=== PATIENT | female | born 1950 | race Caucasian/White ===

== ENCOUNTER 2016-08-25 07:50 | Emergency (ER) | payer OTHER, MEDICAID ==
[~2016-08-25] VITALS: Ht 157.5 cm; Wt 80.0 kg
[~2016-08-25 07:50] MED LIST: ACET325T40 PO; ATOR40TA68 PO; COU5 PO; DILT120C77 PO; DOCU-159 PO; FAMO-95 PO; FAMO20TA18 PO; FURO20TA3 PO; IBUP-1542 PO; MAGN400T28 PO; OXYC5CAP17 PO
[2016-08-25 07:52] VITALS: Ht 157.5 cm; Wt 80.0 kg
--- NOTE | 2016-08-25 08:36 | RADRPT ---
PROCEDURE: XR Chest. CLINICAL INDICATION: Chest pain TECHNIQUE: Single frontal view of the chest was obtained COMPARISON: 03/18/2015 FINDINGS: The heart is enlarged. The thoracic aorta is calcified. The patient is status post sternotomy and heart valve replacement. The lungs are clear. There is no pleural effusion or pneumothorax. RPTAT: AA IMPRESSION: Mild cardiomegaly. Calcified aorta consistent with atherosclerotic disease. .Zbigniew Bergeron MD, MD Date Time Electronically viewed and signed by .Zbigniew Bergeron MD, on 08/25/2016 08:36 .S/
[2016-08-25 09:02] LABS: ADD SCAN DIFF NO
[2016-08-25 09:08] LABS: BASOPHILS % 0.2 % (0.0-2.0); EOSINOPHILS # 0.1 10^3/ul (0.0-0.5); EOSINOPHILS % 1.7 % (0.0-7.0); HEMOGLOBIN 10.7 g/dl (12.0-16.0); LYMPHOCYTES # 0.9 10^3/ul (0.8-2.9); LYMPHOCYTES % 22.9 % (15.0-51.0); MEAN CORPUSCULAR HEMOGLOBIN 29.7 pg (29.0-33.0); MEAN CORPUSCULAR HGB CONC 33.4 g/dl (32.0-37.0); MEAN CORPUSCULAR VOLUME 88.9 fl (82.0-101.0); MEAN PLATELET VOLUME 9.7 fl (7.4-10.4); MONOCYTE # 0.4 10^3/ul (0.3-0.9); MONOCYTES % 9.9 % (0.0-11.0); NEUTROPHIL # 2.6 10^3/ul (1.6-7.5); NEUTROPHILS % 64.8 % (39.0-77.0); PLATELET COUNT 115 10^3/UL (140-415); RED CELL DISTRIBUTION WIDTH 12.6 % (11.5-14.5); WHITE BLOOD COUNT 4.1 10^3/ul (4.8-10.8)
[2016-08-25] MEDS ORDERED: BENA5TAB2 PO (09:15)
[2016-08-25] MEDS ORDERED: WARF7.5T PO (09:15)
[2016-08-25 09:17] LABS: INR 1.66; PROTIME 19.7 Sec (12.2-14.2); PT RATIO 1.5
[2016-08-25 09:18] LABS: PARTIAL THROMBOPLASTIN TIME 36.4 Sec (25.0-35.0)
[2016-08-25 09:20] LABS: ALANINE AMINOTRANSFERASE 37 IU/L (13-69); ALBUMIN 3.6 g/dl (3.3-4.9); ALKALINE PHOSPHATASE 67 IU/L (42-121); ANION GAP 8 (8-16); ASPARTATE AMINO TRANSFERASE 23 IU/L (15-46); BILIRUBIN,INDIRECT 0.4 mg/dl (0-1.1); BILIRUBIN,TOTAL 0.4 mg/dl (0.2-1.3); BLOOD UREA NITROGEN 9 mg/dl (7-20); CALCIUM 8.8 mg/dl (8.4-10.2); CARBON DIOXIDE 28 mmol/L (21-31); CHLORIDE 108 mmol/L (97-110); CREATININE 0.59 mg/dl (0.44-1.00); GLUCOSE 122 mg/dl (70-220); POTASSIUM 3.8 mmol/L (3.5-5.1); SODIUM 140 mmol/L (135-144); TOTAL PROTEIN 6.6 g/dl (6.1-8.1)
[2016-08-25 09:32] LABS: TROPONIN-I < 0.012 ng/ml (0.00-0.12)
[2016-08-25] MEDS ORDERED: AMIO200T2 PO (11:16)
--- NOTE | 2016-08-25 11:21 | ERD ---
ER Documentation Chief Complaint Date/Time DATE: 08/25/16 TIME: 11:18 Chief Complaint palpitations x 3 days HPI This is 65-year-old female here for palpitations. The patient has a history of paroxysmal atrial fibrillation she is on Coumadin currently. She saw her landscaping crew leader 4 days ago and was prescribed labetalol 100 mg twice daily and digoxin 0.125 g daily. The patient says she is taking each medication wants only because they make her feel tired nauseated and weak. She is having intermittent episodes of heart racing but does not have any chest pain or shortness of breath. Heart racing can last a few minutes up to 30 minutes. She is currently having the palpitations now. ROS All systems reviewed and are negative except as per history of present illness. Medications Home Meds Active Scripts Amiodarone Hcl* (Amiodarone Hcl*) 200 Mg Tablet, 200 MG PO BID, #60 TAB Prov:ALETHEA LOW DO 08/25/16 Reported Medications Benazepril Hcl* (Benazepril Hcl*) 5 Mg Tablet, 5 MG PO DAILY, #30 TAB 08/25/16 Warfarin Sodium* (Coumadin*) 7.5 Mg Tablet, 7.5 MG PO DAILY, TAB 08/25/16 Atorvastatin* (Atorvastatin*) 40 Mg Tablet, 40 MG PO HS, TAB 03/18/15 Docusate Sodium* (Docusate Sodium*) 100 Mg Capsule, 100 MG PO DAILY, CAP 03/18/15 Discontinued Reported Medications Warfarin Sod (Coumadin) 5 Mg Tab, 5 MG PO DAILY, TAB 03/19/15 Furosemide* (Furosemide*) 20 Mg Tablet, 20 MG PO DAILY, TAB 03/18/15 Magnesium Oxide* (Magnesium Oxide*) 400 Mg Tablet, 400 MG PO DAILY, TAB 03/18/15 Oxycodone Hcl* (IR) (Oxycodone Hcl*) 5 Mg Capsule, 10 MG PO Q6 Y for PAIN, CAP 03/18/15 Famotidine* (Famotidine*) 20 Mg Tablet, 20 MG PO DAILY, TAB 03/18/15 Discontinued Scripts Famotidine* (Pepcid* AC) 20 Mg Tab, 20 MG PO HS, #20 Prov:WILFREDO GASCA MD 03/20/15 Ibuprofen* (Ibuprofen*) 600 Mg Tab, 600 MG PO Q6H Y for MODERATE PAIN LEVEL 4-6 , #20 Prov:WILFREDO GASCA MD 03/20/15 Diltiazem Hcl* (Cardizem CD*) 120 Mg Capsr, 120 MG PO DAILY, #14 Prov:WILFREDO GASCA MD 03/20/15 Acetaminophen (MAPAP) 325 Mg Tab, 650 MG PO Q6H Y for PAIN LEVEL 1-3 OR FEVER, # 1 Prov:WILFREDO GASCA MD 03/20/15 Allergies Allergies: Coded Allergies: No Known Allergy (Unverified , 08/25/16) PMhx/Soc History of Surgery: Yes (CABG JAN 2015, on Warfarin) Anesthesia Reaction: No Hx Neurological Disorder: No Hx Respiratory Disorders: No Hx Cardiac Disorders: Yes (HTN, high cholesterol) Hx Psychiatric Problems: No Hx Miscellaneous Medical Probl: No Hx Alcohol Use: No Hx Substance Use: No Hx Tobacco Use: No Smoking Status: Never smoker FmHx Family History: No coronary disease Physical Exam Vitals Vital Signs Date Time Temp Pulse Resp B/P Pulse Ox O2 Delivery O2 Flow Rate FiO2 08/25/16 07:52 98.1 108 20 162/92 99 Physical Exam Const: Well-developed, well-nourished Head: Atraumatic, normocephalic Eyes: Normal Conjunctiva, PERRLA, EOMI, normal sclera, no nystagmus ENT: Normal External Ears, Nose and Mouth, moist mucus membranes. Neck: Full range of motion. No meningismus, no lymphadenopathy. Resp: Clear to auscultation bilaterally, no wheezing, rhonchi, rales Cardio: Irregular rhythm, heart rate 96-104, no murmurs, S1 S2 present Abd: Soft, non tender x 4, non distended. Normal bowel sounds, no guarding or rebound, no pulsitile abdominal masses or bruits Skin: No petechiae or rashes, no ecchymosis , no maculopapular rash Back: No midline or flank tenderness Ext: No cyanosis, or edema, FROM x 4, normal inspection, neurovascularly intact x 4 Neur: Awake and alert, STR 5/5 x 4, sensation intact x 4, no focal findings, cerebellum intact Psych: Normal Mood and Affect Result Diagram: 08/25/16 0846 08/25/16 0846 Results 24 hrs Laboratory Tests Test 08/25/16 08:46 White Blood Count 4.110^3/ul Red Blood Count 3.6010^6/ul Hemoglobin 10.7g/dl Hematocrit 32.0% Mean Corpuscular Volume 88.9fl Mean Corpuscular Hemoglobin 29.7pg Mean Corpuscular Hemoglobin Concent 33.4g/dl Red Cell Distribution Width 12.6% Platelet Count 91124^3/UL Mean Platelet Volume 9.7fl Neutrophils % 64.8% Lymphocytes % 22.9% Monocytes % 9.9% Eosinophils % 1.7% Basophils % 0.2% Nucleated Red Blood Cells % 0.0/100WBC Neutrophils # 2.610^3/ul Lymphocytes # 0.910^3/ul Monocytes # 0.410^3/ul Eosinophils # 0.110^3/ul Basophils # 0.010^3/ul Nucleated Red Blood Cells # 0.010^3/ul Prothrombin Time 19.7Sec Prothrombin Time Ratio 1.5 INR International Normalized Ratio 1.66 Activated Partial Thromboplast Time 36.4Sec Sodium Level 140mmol/L Potassium Level 3.8mmol/L Chloride Level 108mmol/L Carbon Dioxide Level 28mmol/L Anion Gap 8 Blood Urea Nitrogen 9mg/dl Creatinine 0.59mg/dl Glucose Level 122mg/dl Calcium Level 8.8mg/dl Total Bilirubin 0.4mg/dl Direct Bilirubin 0.00mg/dl Indirect Bilirubin 0.4mg/dl Aspartate Amino Transf (AST/SGOT) 23IU/L Alanine Aminotransferase (ALT/SGPT) 37IU/L Alkaline Phosphatase 67IU/L Troponin I < 0.012ng/ml Total Protein 6.6g/dl Albumin 3.6g/dl Globulin 3.00g/dl Albumin/Globulin Ratio 1.20 Procedures/MDM EKG: Rate/Rhythm: Atrial fibrillation heart rate [address] changes QRS, ST, QT: NORMAL LA, QRS, QT] Impression: [Atrial fibrillation Lab work is unremarkable. I called and spoke with her landscaping crew leader Dr. Wren, told me to decrease labetalol to 50 mg twice daily, stop digoxin, and amiodarone 200 mg twice daily. I explained this to the patient and she will follow up with him in the office She is currently converted to normal sinus rhythm with a heart rate of 69 Departure Diagnosis: Primary Impression: Atrial fibrillation Atrial fibrillation type: paroxysmal Qualified Code: I48.0 - Paroxysmal atrial fibrillation Condition: Stable Patient Instructions: Atrial Fibrillation Referrals: Ivan Pena APOSTOLOS A. DO Aug 25, 2016 11:21
[2016-08-25 12:10] VITALS: BP 129/77; PULSE 71; RESP 18; TEMP 98.5
== END 2016-08-25 12:12 | disposition home or self-care (01) ==
LOC: E/R 07:50
DX: I48.0 Paroxysmal atrial fibrillation (principal); I10 Essential (primary) hypertension; R40.2142 Coma scale, eyes open, spontaneous, at arrival to emergency department; R40.2252 Coma scale, best verbal response, oriented, at arrival to emergency department; R40.2362 Coma scale, best motor response, obeys commands, at arrival to emergency department; Z79.01 Long term (current) use of anticoagulants; Z95.1 Presence of aortocoronary bypass graft
CPT/HCPCS: 36415; 71010; 80053; 84484; 85025; 85610; 85730; 93005

== ENCOUNTER 2016-08-30 00:49 | Emergency (ER) | payer OTHER, MEDICAID ==
[~2016-08-30] VITALS: Ht 160 cm; Wt 72.0 kg
[~2016-08-30 00:49] MED LIST changes: -ACET325T40 PO; +AMIO200T2 PO; +BENA5TAB2 PO; -COU5 PO; -DILT120C77 PO; -FAMO-95 PO; -FAMO20TA18 PO; -FURO20TA3 PO; -IBUP-1542 PO; -MAGN400T28 PO; -OXYC5CAP17 PO; +WARF7.5T PO
[2016-08-30 00:53] VITALS: Ht 160 cm; Wt 72.0 kg
[2016-08-30] MEDS ORDERED: SOD CHLORIDE 0.9% 500 ML IV STA (01:16)
[2016-08-30 01:36] LABS: ADD SCAN DIFF NO
[2016-08-30 01:39] LABS: BASOPHILS % 0.5 % (0.0-2.0); EOSINOPHILS # 0.2 10^3/ul (0.0-0.5); EOSINOPHILS % 2.4 % (0.0-7.0); LYMPHOCYTES # 2.1 10^3/ul (0.8-2.9); LYMPHOCYTES % 32.7 % (15.0-51.0); MEAN CORPUSCULAR HEMOGLOBIN 29.2 pg (29.0-33.0); MEAN CORPUSCULAR HGB CONC 33.3 g/dl (32.0-37.0); MEAN CORPUSCULAR VOLUME 87.6 fl (82.0-101.0); MEAN PLATELET VOLUME 9.6 fl (7.4-10.4); MONOCYTE # 0.3 10^3/ul (0.3-0.9); MONOCYTES % 5.4 % (0.0-11.0); NEUTROPHIL # 3.7 10^3/ul (1.6-7.5); NEUTROPHILS % 58.4 % (39.0-77.0); PLATELET COUNT 150 10^3/UL (140-415); RED BLOOD COUNT 4.11 10^6/ul (4.20-5.40); RED CELL DISTRIBUTION WIDTH 12.9 % (11.5-14.5); WHITE BLOOD COUNT 6.3 10^3/ul (4.8-10.8)
[2016-08-30] MEDS ORDERED: WARF5TAB72 PO (01:39)
[2016-08-30] MEDS ORDERED: GABA100C14 PO (01:41)
[2016-08-30] MEDS ORDERED: METO-448 PO (01:42)
[2016-08-30 01:48] LABS: INR 1.82; PROTIME 21.2 Sec (12.2-14.2); PT RATIO 1.7
[2016-08-30 01:49] LABS: PARTIAL THROMBOPLASTIN TIME 32.7 Sec (25.0-35.0)
[2016-08-30 01:53] LABS: ALANINE AMINOTRANSFERASE 92 IU/L (13-69); ALBUMIN 4.1 g/dl (3.3-4.9); ALBUMIN/GLOBULIN RATIO 1.32; ALKALINE PHOSPHATASE 71 IU/L (42-121); ANION GAP 10 (8-16); ASPARTATE AMINO TRANSFERASE 114 IU/L (15-46); BILIRUBIN,INDIRECT 0.5 mg/dl (0-1.1); BILIRUBIN,TOTAL 0.5 mg/dl (0.2-1.3); BLOOD UREA NITROGEN 11 mg/dl (7-20); CALCIUM 9.3 mg/dl (8.4-10.2); CARBON DIOXIDE 26 mmol/L (21-31); CHLORIDE 105 mmol/L (97-110); CREATININE 0.68 mg/dl (0.44-1.00); GLUCOSE 122 mg/dl (70-220); SODIUM 137 mmol/L (135-144); TOTAL PROTEIN 7.2 g/dl (6.1-8.1)
[2016-08-30 02:02] LABS: B-TYPE NATRIURETIC PEPTIDE 404 PG/ML (0-125)
--- NOTE | 2016-08-30 02:03 | ERD ---
ER Documentation Chief Complaint Date/Time DATE: 08/30/16 TIME: 02:01 Chief Complaint palpitation on and off x 2 weeks HPI 65-year-old female palpitations for the past 2 weeks. Patient has history of atrial fibrillation. Patient does not take her medications as prescribed. She says it makes her feel weak. Denies any nausea vomiting fevers chills. Denies any chest pain. Denies any other current issues. ROS All systems reviewed and are negative except as per history of present illness. Medications Home Meds Active Scripts Amiodarone Hcl* (Amiodarone Hcl*) 200 Mg Tablet, 200 MG PO BID, #60 TAB Prov:ALETHEA LOWTheresa DO 08/25/16 Reported Medications Metoprolol Tartrate* (Lopressor*) 25 Mg Tab, 25 MG PO BID, #60 TAB 08/30/16 Gabapentin* (Gabapentin*) 100 Mg Capsule, 100 MG PO BID, #90 CAP 08/30/16 Warfarin Sodium* (Coumadin*) 5 Mg Tablet, 7.5 MG PO DAILY, TAB TAKE 1 TO 1 and 1/2 TABLETS DAILY OR DIRECTED BY CLINICAL CLINIC. 08/30/16 Benazepril Hcl* (Benazepril Hcl*) 5 Mg Tablet, 5 MG PO DAILY, #30 TAB 08/25/16 Atorvastatin* (Atorvastatin*) 40 Mg Tablet, 40 MG PO HS, TAB 03/18/15 Docusate Sodium* (Docusate Sodium*) 100 Mg Capsule, 100 MG PO DAILY, CAP 03/18/15 Discontinued Reported Medications Warfarin Sodium* (Coumadin*) 7.5 Mg Tablet, 7.5 MG PO DAILY, TAB 08/25/16 Warfarin Sod (Coumadin) 5 Mg Tab, 5 MG PO DAILY, TAB 03/19/15 Furosemide* (Furosemide*) 20 Mg Tablet, 20 MG PO DAILY, TAB 03/18/15 Magnesium Oxide* (Magnesium Oxide*) 400 Mg Tablet, 400 MG PO DAILY, TAB 03/18/15 Oxycodone Hcl* (IR) (Oxycodone Hcl*) 5 Mg Capsule, 10 MG PO Q6 Y for PAIN, CAP 03/18/15 Famotidine* (Famotidine*) 20 Mg Tablet, 20 MG PO DAILY, TAB 03/18/15 Discontinued Scripts Famotidine* (Pepcid* AC) 20 Mg Tab, 20 MG PO HS, #20 Prov:WILFREDO GASCA MD 03/20/15 Ibuprofen* (Ibuprofen*) 600 Mg Tab, 600 MG PO Q6H Y for MODERATE PAIN LEVEL 4-6 , #20 Prov:WILFREDO GASCA MD 03/20/15 Diltiazem Hcl* (Cardizem CD*) 120 Mg Capsr, 120 MG PO DAILY, #14 Prov:WILFREDO GASCA MD 03/20/15 Acetaminophen (MAPAP) 325 Mg Tab, 650 MG PO Q6H Y for PAIN LEVEL 1-3 OR FEVER, # 1 Prov:WILFREDO GASCA MD 03/20/15 Allergies Allergies: Coded Allergies: No Known Allergy (Unverified , 08/30/16) PMhx/Soc History of Surgery: Yes (CABG JAN 2015, on Warfarin) Anesthesia Reaction: No Hx Neurological Disorder: No Hx Respiratory Disorders: No Hx Cardiac Disorders: Yes (HTN, high cholesterol) Hx Psychiatric Problems: No Hx Miscellaneous Medical Probl: No Hx Alcohol Use: No Hx Substance Use: No Hx Tobacco Use: No Smoking Status: Never smoker Physical Exam Vitals Vital Signs Date Time Temp Pulse Resp B/P Pulse Ox O2 Delivery O2 Flow Rate FiO2 08/30/16 01:55 Nasal Cannula 2 08/30/16 00:53 97.8 125 20 161/96 98 Physical Exam Const: [] Head: Atraumatic Eyes: Normal Conjunctiva ENT: Normal External Ears, Nose and Mouth. Neck: Full range of motion..~ No meningismus. Resp: Clear to auscultation bilaterally Cardio: Regular rate and rhythm, no murmurs Abd: Soft, non tender, non distended. Normal bowel sounds Skin: No petechiae or rashes Back: No midline or flank tenderness Ext: No cyanosis, or edema Neur: Awake and alert Psych: Normal Mood and Affect Result Diagram: 08/30/1612908/30/16129 Results 24 hrs Laboratory Tests Test 08/30/16 01:30 White Blood Count 6.310^3/ul Red Blood Count 4.1110^6/ul Hemoglobin 12.0g/dl Hematocrit 36.0% Mean Corpuscular Volume 87.6fl Mean Corpuscular Hemoglobin 29.2pg Mean Corpuscular Hemoglobin Concent 33.3g/dl Red Cell Distribution Width 12.9% Platelet Count 48693^3/UL Mean Platelet Volume 9.6fl Neutrophils % 58.4% Lymphocytes % 32.7% Monocytes % 5.4% Eosinophils % 2.4% Basophils % 0.5% Nucleated Red Blood Cells % 0.0/100WBC Neutrophils # 3.710^3/ul Lymphocytes # 2.110^3/ul Monocytes # 0.310^3/ul Eosinophils # 0.210^3/ul Basophils # 0.010^3/ul Nucleated Red Blood Cells # 0.010^3/ul Prothrombin Time 21.2Sec Prothrombin Time Ratio 1.7 INR International Normalized Ratio 1.82 Activated Partial Thromboplast Time 32.7Sec Sodium Level 137mmol/L Potassium Level 4.0mmol/L Chloride Level 105mmol/L Carbon Dioxide Level 26mmol/L Anion Gap 10 Blood Urea Nitrogen 11mg/dl Creatinine 0.68mg/dl Glucose Level 122mg/dl Calcium Level 9.3mg/dl Total Bilirubin 0.5mg/dl Direct Bilirubin 0.00mg/dl Indirect Bilirubin 0.5mg/dl Aspartate Amino Transf (AST/SGOT) 114IU/L Alanine Aminotransferase (ALT/SGPT) 92IU/L Alkaline Phosphatase 71IU/L Troponin I Pending B-Type Natriuretic Peptide Pending Total Protein 7.2g/dl Albumin 4.1g/dl Globulin 3.10g/dl Albumin/Globulin Ratio 1.32 Current Medications Medications (Trade) Dose Ordered Sig/Giovanni Route PRN Reason Start Time Stop Time Status Last Admin Dose Admin Sodium Chloride (NS) 500 ml @ 500 mls/hr Q1H STAT IV 08/30/16 01:16 08/30/16 02:15 Procedures/MDM EKG: Rate/Rhythm: Irregular rate. Variable [place] intervals. QRS, ST, T-waves: No changes consistent w/ acute ischemia Impression: Atrial fibrillation rapid ventricular response Rhythm strip: Rate/Rhythm: Normal Sinus Rhythm Impression: No evidence of ischemia or arrhythmia Medical decision-makin 5 year female with palpitations. At this point clinically stable for outpatient management. Patient will be discharged home now that she is in sinus rhythm. Follow-up with sap sd analyst tomorrow. Departure Diagnosis: Primary Impression: Palpitations Condition: Stable BERNADETTE CEDILLO August 30, 2016 02:03
[2016-08-30 02:06] LABS: TROPONIN-I < 0.012 ng/ml (0.00-0.12)
--- NOTE | 2016-08-30 02:28 | RADRPT ---
PROCEDURE: XR Chest. CLINICAL INDICATION: Chest pain. TECHNIQUE: Single frontal view of the chest. COMPARISON: 03/18/2015. FINDINGS: Cardiomegaly. Previously seen right pleural effusion and right lung base atelectasis versus airspac e disease are resolved over interval. The lungs are clear. No signs of pleural fluid or pneumothor ax are seen. The osseous structures and soft tissues are unremarkable. IMPRESSION: No evidence for active cardiopulmonary disease. RPTAT: [facility] Physician Carlos Date Time Electronically viewed and signed by Physician Carlos on 08/30/2016 02:27 RS/
[2016-08-30 02:32] VITALS: BP 112/75; PULSE 82; RESP 18
== END 2016-08-30 02:34 | disposition home or self-care (01) ==
LOC: E/R 00:49
DX: R00.2 Palpitations (principal); I10 Essential (primary) hypertension; R07.9 Chest pain, unspecified; Z79.01 Long term (current) use of anticoagulants; Z95.1 Presence of aortocoronary bypass graft
CPT/HCPCS: 36415; 71010; 80053; 80162; 83880; 84484; 85025; 85610; 85730; 93005; 99285; J7040

== ENCOUNTER 2016-10-04 04:12 | Emergency (ER) | payer OTHER, MEDICAID ==
[~2016-10-04] VITALS: Ht 152.4 cm; Wt 73.0 kg
[~2016-10-04 04:12] MED LIST changes: +GABA100C14 PO; +METO-448 PO; +WARF5TAB72 PO; -WARF7.5T PO
[2016-10-04 04:15] VITALS: Ht 152.4 cm; Wt 73.0 kg
[2016-10-04] MEDS ORDERED: ONDANSETRON 4 MG INJ IV STA (04:28)
[2016-10-04] MEDS ORDERED: morphine 4 MG/ML VIAL IV STA (04:28)
[2016-10-04] MEDS ORDERED: SOD CHLORIDE 0.9% 1,000 ML IV STA (04:28)
--- NOTE | 2016-10-04 05:22 | RADRPT ---
PROCEDURE: CT Abdomen and pelvis without contrast. CLINICAL INDICATION: Abdominal pain. TECHNIQUE: CT scan of the abdomen and pelvis was performed on a multi-detector high-resolution CT scanner. Contiguous axial images were obtained from the lung bases to the ischial tuberosities wit hout intravenous contrast. Coronal and sagittal reformatted images were also obtained. Images were reviewed on the PACS workstation. One or more of the following dose reduction techniques were used: - Automated exposure control. - Adjustment of the mA and/or kV according to patient size. - Use of iterative reconstruction technique. Exam CTD/vol = 12.79 mGy. Total exam DLP = 778.41 mGy-cm. COMPARISON: None. FINDINGS: Evaluation of the lung bases demonstrates mild bibasilar atelectasis. The heart is mild to moderate ly enlarged. Mediasternotomy wires are present. There is a calcified granuloma within the right lo wer lobe. Abdomen: The liver is normal in size. There are small hypodense lesions within the right lobe of t he liver measuring 1.0 x 1.6 cm. There is a 6 mm hypodense lesion within the anterior segment of th e right lobe of the liver. There is no dilatation of the biliary tree. The gallbladder is not dist ended. The spleen, pancreas and bilateral adrenal glands are within normal limits. Bilateral kidne ys are normal in size with no contour deforming mass identified. There is no radiopaque renal or ur eteral calculus identified. There is no hydronephrosis or hydroureter. There is no retroperitoneal adenopathy. The abdominal aorta is of normal caliber with mild scattered atherosclerotic calcifica tions. There is sigmoid diverticulosis with mild thickening and stranding adjacent to the proximal sigmoid colon. There is no bowel obstruction or free air. A normal appendix is identified. There is no as cites. Pelvis: The bladder is unremarkable. The uterus is absent. There is a tiny left inguinal hernia c ontaining fat. There is no significant pelvic adenopathy or free fluid. Evaluation of the osseous structures demonstrates no suspicious lytic or blastic lesion. There are d egenerative changes and mild scoliosis of the lumbar spine. IMPRESSION: Sigmoid diverticulosis with mild diverticulitis of the proximal sigmoid. Mild to moderate cardiomegaly. Small hypodense lesions within the right lobe of the liver, indeterminate. Follow-up is recommended. Status post cholecystectomy. Mild vascular calcifications reflective of atherosclerosis. Tiny left inguinal hernia containing fat. Degenerative changes and mild scoliosis of the lumbar spine. .Daniel Gunter MD, Date Time Electronically viewed and signed by .Daniel Gunter MD, on 10/04/2016 05:22 .T/
[2016-10-04 05:34] LABS: ADD UMIC YES; URINE BILIRUBIN (Dip) NEGATIVE (NEGATIVE); URINE BLOOD (Dip) TRACE (NEGATIVE); URINE COLOR LT. YELLOW (YELLOW); URINE GLUCOSE (Dip) NEGATIVE (NEGATIVE); URINE KETONES (Dip) NEGATIVE (NEGATIVE); URINE LEUKOCYTE ESTERASE (Dip) 1+ (NEGATIVE); URINE NITRITE (Dip) NEGATIVE (NEGATIVE); URINE TOTAL PROTEIN (Dip) NEGATIVE (NEGATIVE); URINE UROBILINOGEN (Dip) 0.2 E.U./dL (0.1-1.0)
--- NOTE | 2016-10-04 05:41 | RADRPT ---
PROCEDURE: XR Chest. CLINICAL INDICATION: Abdominal pain TECHNIQUE: A single AP view of the chest was obtained. COMPARISON: Chest x-ray dated 08/30/2016 FINDINGS: Lung volumes are low with compressive changes, vascular crowding and basilar atelectasis. No focal a irspace opacity, pleural effusion or pneumothorax is seen. The cardiomediastinal silhouette is mild ly enlarged. There are post cardiac surgery changes with sternotomy wires, mechanical valve and lef t atrial appendage occlusion device. The osseous structures are unremarkable. IMPRESSION: 1. Low lung volumes with compressive changes and basilar atelectasis. No significant interval vance e. 2. Mild cardiomegaly with stable post cardiac surgery changes. RPTAT: HH .Catherine Prieto MD, Date Time Electronically viewed and signed by .Catherine Prieto MD, on 10/04/2016 05:41 .G/
[2016-10-04 05:51] LABS: ADD SCAN DIFF NO
[2016-10-04 05:53] LABS: BASOPHILS % 0.5 % (0.0-2.0); EOSINOPHILS # 0.1 10^3/ul (0.0-0.5); EOSINOPHILS % 2.2 % (0.0-7.0); HEMOGLOBIN 11.2 g/dl (12.0-16.0); LYMPHOCYTES # 1.2 10^3/ul (0.8-2.9); LYMPHOCYTES % 31.6 % (15.0-51.0); MEAN CORPUSCULAR HEMOGLOBIN 29.7 pg (29.0-33.0); MEAN CORPUSCULAR HGB CONC 33.9 g/dl (32.0-37.0); MEAN CORPUSCULAR VOLUME 87.5 fl (82.0-101.0); MEAN PLATELET VOLUME 9.8 fl (7.4-10.4); MONOCYTE # 0.2 10^3/ul (0.3-0.9); MONOCYTES % 6.5 % (0.0-11.0); NEUTROPHIL # 2.2 10^3/ul (1.6-7.5); NEUTROPHILS % 58.9 % (39.0-77.0); PLATELET COUNT 113 10^3/UL (140-415); RED BLOOD COUNT 3.77 10^6/ul (4.20-5.40); RED CELL DISTRIBUTION WIDTH 13.3 % (11.5-14.5); WHITE BLOOD COUNT 3.7 10^3/ul (4.8-10.8)
[2016-10-04 05:56] LABS: BACTERIA,URINE OCCASIONAL; SQUAMOUS EPITHELIAL CELL,UR OCCASIONAL; URINE RBCS 0-2 /HPF (0)
[2016-10-04 06:16] LABS: ALBUMIN 4.1 g/dl (3.3-4.9); ALBUMIN/GLOBULIN RATIO 1.78; BILIRUBIN,INDIRECT 0.3 mg/dl (0-1.1); BILIRUBIN,TOTAL 0.3 mg/dl (0.2-1.3); CALCIUM 8.4 mg/dl (8.4-10.2); CREATININE 0.61 mg/dl (0.44-1.00); POTASSIUM 4.1 mmol/L (3.5-5.1); TOTAL PROTEIN 6.4 g/dl (6.1-8.1)
[2016-10-04 06:21] LABS: INR 3.56; PROTIME 36.2 Sec (12.2-14.2); PT RATIO 2.8
[2016-10-04 06:22] LABS: PARTIAL THROMBOPLASTIN TIME 40.9 Sec (25.0-35.0)
[2016-10-04] MEDS ORDERED: LEVOFLOXACIN 500MG/D5W (PMX) 100 ML IVPB ONE (06:30)
--- NOTE | 2016-10-04 06:35 | ERD ---
ER Documentation Chief Complaint Date/Time DATE: 10/04/16 TIME: 06:33 Chief Complaint Constipation x2 weeks, with small amount of blood, hx of hemorrhoids HPI 65-year-old woman complains of constipation and intermittent blood per rectum 2 weeks, she has pain to the lower abdomen worse on the right compared to the left, she denies mucus in her stools, no melena, no fevers or chills, no vomiting, no complaints of chest pain or shortness of breath. Patient does have a history of hemorrhoids and has had blood per rectum in the past. ROS All systems reviewed and are negative except as per history of present illness. Medications Home Meds Active Scripts Ibuprofen* (Ibuprofen*) 600 Mg Tablet, 600 MG PO Q8 for PAIN AND/OR INFLAMMATION , #30 TAB Prov:GUTIERREZ BOOTH MD 10/04/16 Docusate Sodium* (Colace*) 100 Mg Capsule, 100 MG PO BID for CONSTIPATION, #30 CAP Prov:GUTIERREZ BOOTH MD 10/04/16 Levofloxacin* (Levaquin*) 500 Mg Tablet, 500 MG PO DAILY for 4 Days, TAB Prov:GUTIERREZ BOOTH MD 10/04/16 Metronidazole* (Flagyl*) 500 Mg Tablet, 500 MG PO TID for 5 Days, TAB Prov:GUTIERREZ BOOTH MD 10/04/16 Amiodarone Hcl* (Amiodarone Hcl*) 200 Mg Tablet, 200 MG PO BID, #60 TAB Prov:ALETHEA LOW DO 08/25/16 Reported Medications Metoprolol Tartrate* (Lopressor*) 25 Mg Tab, 25 MG PO BID, #60 TAB 08/30/16 Gabapentin* (Gabapentin*) 100 Mg Capsule, 100 MG PO BID, #90 CAP 08/30/16 Warfarin Sodium* (Coumadin*) 5 Mg Tablet, 7.5 MG PO DAILY, TAB TAKE 1 TO 1 and 1/2 TABLETS DAILY OR DIRECTED BY CLINICAL CLINIC. 08/30/16 Benazepril Hcl* (Benazepril Hcl*) 5 Mg Tablet, 5 MG PO DAILY, #30 TAB 08/25/16 Atorvastatin* (Atorvastatin*) 40 Mg Tablet, 40 MG PO HS, TAB 03/18/15 Docusate Sodium* (Docusate Sodium*) 100 Mg Capsule, 100 MG PO DAILY, CAP 03/18/15 Allergies Allergies: Coded Allergies: No Known Allergy (Unverified , 08/30/16) PMhx/Soc Severe mitral regurgitation status post surgical repair, paroxysmal atrial fibrillation, hypertension, diabetes, status post cholecystectomy History of Surgery: Yes (CABG JAN 2015, Hysterectomy 2001) Anesthesia Reaction: No Hx Neurological Disorder: No Hx Respiratory Disorders: No Hx Cardiac Disorders: Yes (HTN, high cholesterol) Hx Psychiatric Problems: No Hx Miscellaneous Medical Probl: No Hx Alcohol Use: No Hx Substance Use: No Hx Tobacco Use: Yes Smoking Status: Current every day smoker FmHx Family History: No diabetes Physical Exam Vitals Vital Signs Date Time Temp Pulse Resp B/P Pulse Ox O2 Delivery O2 Flow Rate FiO2 10/04/16 04:15 97.5 118 20 161/96 97 Physical Exam GENERAL: Well-developed, well-nourished, well-hydrated, in no apparent distress , looks nontoxic in appearance HEENT: Moist mucous membranes, pink conjunctiva, no cervical spine tenderness or step-off deformities, no goiter, no jaundice or icterus, extraocular movements intact without pain. No submandibular induration, and no pharyngeal erythema NEURO: Alert and oriented 3, cranial nerves II through XII intact bilaterally, pupils equal round reactive to light, no focal deficits or facial asymmetry, sensation intact distally Strength 5/5 in upper and lower extremities bilaterally CARDIAC: Regular rate and rhythm, no murmurs rubs or gallops LUNGS: Clear bilaterally no wheezing crackles or stridor ABDOMEN: Soft nontender, no guarding, no rigidity, no rebound, no psoas sign no obturator sign. Normoactive bowel sounds SKIN: Warm and dry to touch, no abrasions, contusions, or hematomas, no lacerations, no ecchymosis, no target lesions, and without ulcers EXTREMITIES: No clubbing cyanosis or edema, calves are bilaterally symmetrical, no Homans sign, no popliteal cord sign. Distal pulses equal and bilateral PSYCH: Normal affect without agitation or irritability Result Diagram: 10/04/1636 10/04/1636 Results 24 hrs Laboratory Tests Test 10/04/16 04:50 10/04/16 05:36 Urine Color LT. YELLOW Urine Clarity CLEAR Urine pH 6.0 Urine Specific Hitchcock <=1.005 Urine Ketones NEGATIVE Urine Nitrite NEGATIVE Urine Bilirubin NEGATIVE Urine Urobilinogen 0.2 E.U./dL Urine Leukocyte Esterase 1+ Urine Microscopic RBC 0-2/HPF Urine Microscopic WBC 2-5/HPF Urine Squamous Epithelial Cells OCCASIONAL Urine Bacteria OCCASIONAL Urine Hemoglobin TRACE Urine Glucose NEGATIVE% Urine Total Protein NEGATIVE White Blood Count 3.710^3/ul Red Blood Count 3.7710^6/ul Hemoglobin 11.2g/dl Hematocrit 33.0% Mean Corpuscular Volume 87.5fl Mean Corpuscular Hemoglobin 29.7pg Mean Corpuscular Hemoglobin Concent 33.9g/dl Red Cell Distribution Width 13.3% Platelet Count 40586^3/UL Mean Platelet Volume 9.8fl Neutrophils % 58.9% Lymphocytes % 31.6% Monocytes % 6.5% Eosinophils % 2.2% Basophils % 0.5% Nucleated Red Blood Cells % 0.0/100WBC Neutrophils # 2.210^3/ul Lymphocytes # 1.210^3/ul Monocytes # 0.210^3/ul Eosinophils # 0.110^3/ul Basophils # 0.010^3/ul Nucleated Red Blood Cells # 0.010^3/ul Prothrombin Time 36.2Sec Prothrombin Time Ratio 2.8 INR International Normalized Ratio 3.56 Activated Partial Thromboplast Time 40.9Sec Sodium Level 144mmol/L Potassium Level 4.1mmol/L Chloride Level 112mmol/L Carbon Dioxide Level 26mmol/L Anion Gap 10 Blood Urea Nitrogen 13mg/dl Creatinine 0.61mg/dl Glucose Level 129mg/dl Calcium Level 8.4mg/dl Total Bilirubin 0.3mg/dl Direct Bilirubin 0.00mg/dl Indirect Bilirubin 0.3mg/dl Aspartate Amino Transf (AST/SGOT) 20IU/L Alanine Aminotransferase (ALT/SGPT) 39IU/L Alkaline Phosphatase 56IU/L Total Protein 6.4g/dl Albumin 4.1g/dl Globulin 2.30g/dl Albumin/Globulin Ratio 1.78 Lipase 92U/L Current Medications Medications (Trade) Dose Ordered Sig/Giovanni Route PRN Reason Start Time Stop Time Status Last Admin Dose Admin Sodium Chloride (NS) 1,000 ml @ 1,000 mls/hr Q1H STAT IV 10/04/16 04:28 10/04/16 05:27 DC 10/04/16 05:20 Morphine Sulfate (morphine) 4 mg ONCE STAT IV 10/04/16 04:28 10/04/16 04:29 DC 10/04/16 05:19 Ondansetron HCl 4 mg 4 mg ONCE STAT IV 10/04/16 04:28 10/04/16 04:29 DC 10/04/16 05:19 Levofloxacin/ Dextrose (Levaquin 500mg/ D5W 100 ml (Pmx)) 100 ml @ 100 mls/hr ONCE ONCE IVPB 10/04/16 06:30 10/04/16 07:29 DC 10/04/16 06:34 Famotidine (Pepcid) 40 mg ONCE STAT PO 10/04/16 06:36 10/04/16 06:37 DC Miscellaneous Medication (Gi Cocktail (2)) 40 ml ONCE STAT PO 10/04/16 06:36 10/04/16 06:37 DC Belladonna/ Phenobarbital () 2 tab ONCE STAT PO 10/04/16 06:36 10/04/16 06:37 DC Procedures/MDM IV line was established patient was placed on shelter monitor rhythm strip revealed a sinus tachycardia at 120 bpm with upright P and T waves. Patient was afebrile. EKG performed, read by me revealed a sinus tachycardia at 115 bpm, left axis deviation, with a right ventricular conduction delay and a QRS duration of 112 ms, no concerning ST elevations or depressions noted. I administered 1 L normal saline intravenous, morphine 4 mg IV, Zofran 4 mg IV, GI cocktail 50 cc p.o., and famotidine 40 mg p.o. with good effect. CT scan revealed mild diverticulitis of the proximal colon, no perforation or abscess is noted. Please refer to radiologist dictation for full report. Patient was treated here with levofloxacin 500 mg IV 1. CBC revealed leukopenia 3.7, electrolytes were unremarkable, liver function tests were normal, urine analysis was negative for infection. I repeated the patient's abdominal exam, her belly is soft, vital signs are normal, she feels much better. She has acute mild diverticulitis and can be managed as an outpatient with metronidazole and levofloxacin. Differential diagnoses considered, included but not limited to acute coronary syndrome, pulmonary embolism, aortic dissection, abdominal aortic aneurysm, sepsis, stroke, meningitis, encephalitis, pneumonia, appendicitis, cholecystitis , bowel obstruction, pyelonephritis, nephrolithiasis, cystitis, as well as metabolic, hematologic, and electrolyte abnormalities. As well as abscess, cellulitis, fractures, and dislocations. Patient feels much better at this time, and vital signs are normal, symptoms have improved. I did give strict instructions to return to the ED if symptoms continue or worsen, patient will otherwise follow-up with primary care physician. Patient understood instructions and agreed to plan. Disclaimer: Inadvertent spelling or grammatical errors are likely due to EHR/ dictation software use and do not reflect on the overall quality of patient care. Departure Diagnosis: Primary Impression: Diverticulitis Diverticulitis site: large intestine Diverticulitis bleeding: without bleeding Diverticulitis complication: without perforation or abscess Qualified Code: K57.32 - Diverticulitis of large intestine without perforation or abscess without bleeding Condition: Good GUTIERREZ BOOTH MD Oct 04, 2016 06:35
[2016-10-04] MEDS ORDERED: LIDOCAINE/MYLANTA 40 ML BTL PO STA (06:36)
[2016-10-04] MEDS ORDERED: FAMOTIDINE 20 MG TAB PO STA (06:36)
[2016-10-04] MEDS ORDERED: BELLADONNA/PHENOBARBITAL TAB PO STA (06:36)
[2016-10-04] MEDS ORDERED: IBUP-1542 PO (06:54)
[2016-10-04] MEDS ORDERED: LEVO500T72 PO (06:54)
[2016-10-04] MEDS ORDERED: DOCU-144 PO (06:54)
[2016-10-04] MEDS ORDERED: METR500T PO (06:54)
== END 2016-10-04 07:44 | disposition home or self-care (01) ==
LOC: FTE 04:12 → E/R 07:44
DX: K57.32 Diverticulitis of large intestine without perforation or abscess without bleeding (principal); I10 Essential (primary) hypertension; E11.9 Type 2 diabetes mellitus without complications; F17.210 Nicotine dependence, cigarettes, uncomplicated; Z79.01 Long term (current) use of anticoagulants; Z95.1 Presence of aortocoronary bypass graft
CPT/HCPCS: 36415; 71010; 74176; 80053; 81001; 83690; 85025; 85610; 85730; 93005; 96374; 96375; 99285; J1956; J2270; J2405; J7030

== ENCOUNTER 2016-12-18 19:18 | Emergency (ER) | payer OTHER, MEDICAID ==
[~2016-12-18] VITALS: Ht 154.9 cm; Wt 74.0 kg
[~2016-12-18 19:18] MED LIST changes: +ACET325T40 PO; +ASPI-664 PO; +CARV3.12 PO; +COU5 PO; +DILT120C77 PO; +DOCU-144 PO; +FAMO-95 PO; +FAMO20TA18 PO; +FURO-110 PO; +FURO20TA3 PO; +IBUP-1542 PO; +IBUP200C PO; +LEVO500T72 PO; +MAGN400T28 PO; +METR500T PO; +OXYC5CAP17 PO; +RIVA20TA PO; +Thiamine Hcl PO; +UDTYL PO; +WARF7.5T PO
[2016-12-18 19:22] VITALS: Ht 154.9 cm; Wt 74.0 kg
--- NOTE | 2016-12-18 19:41 | QN ---
Documentation Comment MD note Et[id number]-old female presents with dysuria for last week. No history of fevers, vomiting, abdominal pain, discharge. Agree with detailed history and physical of mid-level provider pROUSE Objective-afebrile vital signs stable, abdomen soft nontender no CVA tenderness. Urine shows signs of infection Assessment-cystitis uncomplicated Plan outpatient antibiotics per mid-level provider treat and release policy and return precautions per aftercare instructions RASHAAD ROSSI MD Dec 18, 2016 19:41
[2016-12-18 20:31] LABS: URINE BLOOD (Dip) POC Trace-intact (NEGATIVE)
--- NOTE | 2016-12-18 20:39 | ERD ---
ER Documentation Chief Complaint Date/Time DATE: 12/18/16 TIME: 20:37 Chief Complaint PAINFUL URINATION X1 WEEK DENIES BLOOD IN URINE HPI Is a 65-year-old female presents to the emergency department today complaining of pain with urination for the past week. Denies any hematuria, vaginal discharge, fevers, back pain. ROS All systems reviewed and are negative except as per history of present illness. Medications Home Meds Active Scripts Acetaminophen* (Tylophen*) 500 Mg Capsule, 1 CAP PO Q6H Y for PAIN AND OR ELEVATED TEMP, #30 CAP Prov:BRIANNA THOMAS PA-C 12/18/16 Cephalexin* (Keflex*) 500 Mg Capsule, 500 MG PO QID for 7 Days, CAP Prov:BRIANNA THOMAS PA-C 12/18/16 Ibuprofen* (Ibuprofen*) 600 Mg Tablet, 600 MG PO Q8 for PAIN AND/OR INFLAMMATION , #30 TAB Prov:GUTIERREZ BOOTH MD 10/04/16 Docusate Sodium* (Colace*) 100 Mg Capsule, 100 MG PO BID for CONSTIPATION, #30 CAP Prov:GUTIERREZ BOOTH MD 10/04/16 Levofloxacin* (Levaquin*) 500 Mg Tablet, 500 MG PO DAILY for 4 Days, TAB Prov:GUTIERREZ BOOTH MD 10/04/16 Metronidazole* (Flagyl*) 500 Mg Tablet, 500 MG PO TID for 5 Days, TAB Prov:GUTIERREZ BOOTH MD 10/04/16 Amiodarone Hcl* (Amiodarone Hcl*) 200 Mg Tablet, 200 MG PO BID, #60 TAB Prov:ALETHEA LOW DO 08/25/16 Reported Medications Metoprolol Tartrate* (Lopressor*) 25 Mg Tab, 25 MG PO BID, #60 TAB 08/30/16 Gabapentin* (Gabapentin*) 100 Mg Capsule, 100 MG PO BID, #90 CAP 08/30/16 Warfarin Sodium* (Coumadin*) 5 Mg Tablet, 7.5 MG PO DAILY, TAB TAKE 1 TO 1 and 1/2 TABLETS DAILY OR DIRECTED BY CLINICAL CLINIC. 08/30/16 Benazepril Hcl* (Benazepril Hcl*) 5 Mg Tablet, 5 MG PO DAILY, #30 TAB 08/25/16 Atorvastatin* (Atorvastatin*) 40 Mg Tablet, 40 MG PO HS, TAB 03/18/15 Docusate Sodium* (Docusate Sodium*) 100 Mg Capsule, 100 MG PO DAILY, CAP 03/18/15 Allergies Allergies: Coded Allergies: No Known Allergy (Unverified , 12/18/16) PMhx/Soc History of Surgery: Yes (CABG JAN 2015, Hysterectomy 2001) Anesthesia Reaction: No Hx Neurological Disorder: No Hx Respiratory Disorders: No Hx Cardiac Disorders: Yes (HTN, high cholesterol) Hx Psychiatric Problems: No Hx Miscellaneous Medical Probl: No Hx Alcohol Use: No Hx Substance Use: No Hx Tobacco Use: Yes Smoking Status: Current every day smoker Physical Exam Vitals Vital Signs Date Time Temp Pulse Resp B/P Pulse Ox O2 Delivery O2 Flow Rate FiO2 12/18/16 19:22 97.0 110 18 128/82 98 Physical Exam Const: No acute distress Head: Atraumatic Eyes: Normal Conjunctiva ENT: Normal External Ears, Nose and Mouth. Neck: Full range of motion..~ No meningismus. Resp: Clear to auscultation bilaterally Cardio: Regular rate and rhythm, no murmurs Abd: Soft, mild suprapubic tenderness non distended. Normal bowel sounds. No right lower quadrant tenderness. No tenderness McBurney's. Skin: No petechiae or rashes Back: No midline or flank tenderness Ext: No cyanosis, or edema Neur: Awake and alert Psych: Normal Mood and Affect Results 24 hrs Laboratory Tests Test 12/18/16 20:37 Bedside Urine pH (LAB) 6.0 Bedside Urine Protein (LAB) Negative Bedside Urine Glucose (UA) Negative Bedside Urine Ketones (LAB) Negative Bedside Urine Blood Trace-intact Bedside Urine Nitrite (LAB) Positive Bedside Urine Leukocyte Esterase (L 1+ Procedures/MDM This is a 65-year-old female presents emergency department today complaining of burning and pain with urination for the past week. I did obtain a UA UA shows 1+ leukocyte esterase and positive nitrites. Patient be given a prescription for Keflex for urinary tract infection. Patient is afebrile and otherwise well-appearing. Low suspicion for pyelonephritis or nephrolithiasis. Low suspicion for acute surgical abdomen. At this time the patient is stable for discharge and outpatient management. Patient should follow up with their PCP in the next 1-2 days. They may return to the emergency department sooner for any persistent or worsening of symptoms. Patient understood and agreed with the plan. Departure Diagnosis: Primary Impression: UTI (urinary tract infection) Urinary tract infection type: site unspecified Hematuria presence: without hematuria Qualified Code: N39.0 - Urinary tract infection without hematuria, site unspecified Condition: BRIANNA Barajas PA-C Dec 18, 2016 20:39
[2016-12-18] MEDS ORDERED: CEPH-443 PO (20:40)
[2016-12-18] MEDS ORDERED: ACET500C5 PO (20:40)
== END 2016-12-18 20:45 | disposition home or self-care (01) ==
LOC: FTE 19:18
DX: N39.0 Urinary tract infection, site not specified (principal); I10 Essential (primary) hypertension; F17.210 Nicotine dependence, cigarettes, uncomplicated; Z79.01 Long term (current) use of anticoagulants; Z95.1 Presence of aortocoronary bypass graft
CPT/HCPCS: 81003; 99283

== ENCOUNTER 2016-12-21 00:04 | Inpatient (IN) | payer OTHER ==
[~2016-12-21] VITALS: Ht 152.4 cm; Wt 74.0 kg
[2016-12-21] VITALS (9 sets, daily range): BP systolic 90–125; BP diastolic 54–85; PULSE 67–111; RESP 18–19; TEMP 98.1; Ht 152.4 cm; Wt 74.0 kg
[~2016-12-21 00:04] MED LIST changes: -ACET325T40 PO; +ACET500C5 PO; -ASPI-664 PO; -CARV3.12 PO; +CEPH-443 PO; -COU5 PO; -DILT120C77 PO; -FAMO-95 PO; -FAMO20TA18 PO; -FURO-110 PO; -FURO20TA3 PO; -IBUP200C PO; -MAGN400T28 PO; -OXYC5CAP17 PO; -RIVA20TA PO; -Thiamine Hcl PO; -UDTYL PO; -WARF7.5T PO
[2016-12-21] MEDS ORDERED: ASPIRIN 325 MG TAB PO ONE (02:21)
[2016-12-21] MEDS ORDERED: NITROGLYCERIN 2% 1 GM OINT PKT TD ONE (02:21)
--- NOTE | 2016-12-21 02:21 | ERA ---
ER Documentation Chief Complaint Date/Time DATE: 12/21/16 TIME: 02:18 Chief Complaint cp and n/v since this pm had angiogram 2 weeks ago at [place] hx of cabg HPI 65-year-old female with a past medical history of hypertension, cardiac surgery with that appears to be related to valvular disease, A. fib on Coumadin who presents with chest pain and nausea. She describes substernal chest pain that is pressure-like with associated nausea and 2 episodes of nonbloody nonbilious emesis. It appears that several weeks ago she had an ablation at [place]. Patient describes only mild symptoms currently approximately 2 out of 10. ROS All systems reviewed and are negative except as per history of present illness. Medications Home Meds Active Scripts Acetaminophen* (Tylophen*) 500 Mg Capsule, 1 CAP PO Q6H Y for PAIN AND OR ELEVATED TEMP, #30 CAP Prov:BRIANNA THOMAS PA-C 12/18/16 Cephalexin* (Keflex*) 500 Mg Capsule, 500 MG PO QID for 7 Days, CAP Prov:BRIANNA THOMAS PA-C 12/18/16 Ibuprofen* (Ibuprofen*) 600 Mg Tablet, 600 MG PO Q8 for PAIN AND/OR INFLAMMATION , #30 TAB Prov:GUTIERREZ BOOTH MD 10/04/16 Docusate Sodium* (Colace*) 100 Mg Capsule, 100 MG PO BID for CONSTIPATION, #30 CAP Prov:GUTIERREZ BOOTH MD 10/04/16 Levofloxacin* (Levaquin*) 500 Mg Tablet, 500 MG PO DAILY for 4 Days, TAB Prov:GUTIERREZ BOOTH MD 10/04/16 Metronidazole* (Flagyl*) 500 Mg Tablet, 500 MG PO TID for 5 Days, TAB Prov:GUTIERREZ BOOTH MD 10/04/16 Amiodarone Hcl* (Amiodarone Hcl*) 200 Mg Tablet, 200 MG PO BID, #60 TAB Prov:ALETHEA LOW DO 08/25/16 Reported Medications Acetaminophen* (Acetaminophen*) 500 MG Extra Strength Tablet, 500 MG PO Q4H Y for PAIN AND OR ELEVATED TEMP, TAB 12/21/16 Cephalexin* (Cephalexin*) 250 Mg Capsule, 250 MG PO Q8, #21 CAP 12/21/16 Metoprolol Tartrate* (Lopressor*) 25 Mg Tab, 25 MG PO BID, #60 TAB 08/30/16 Gabapentin* (Gabapentin*) 100 Mg Capsule, 100 MG PO BID, #90 CAP 08/30/16 Warfarin Sodium* (Coumadin*) 5 Mg Tablet, 7.5 MG PO DAILY, TAB TAKE 1 TO 1 and 1/2 TABLETS DAILY OR DIRECTED BY CLINICAL CLINIC. 08/30/16 Benazepril Hcl* (Benazepril Hcl*) 5 Mg Tablet, 5 MG PO DAILY, #30 TAB 08/25/16 Atorvastatin* (Atorvastatin*) 40 Mg Tablet, 40 MG PO HS, TAB 03/18/15 Docusate Sodium* (Docusate Sodium*) 100 Mg Capsule, 100 MG PO DAILY, CAP 03/18/15 Allergies Allergies: Coded Allergies: No Known Allergy (Unverified , 12/21/16) PMhx/Soc History of Surgery: Yes (CABG JAN 2015, Hysterectomy 2001) Anesthesia Reaction: No Hx Neurological Disorder: No Hx Respiratory Disorders: No Hx Cardiac Disorders: Yes (HTN, high cholesterol) Hx Psychiatric Problems: No Hx Miscellaneous Medical Probl: No Hx Alcohol Use: No Hx Substance Use: No Hx Tobacco Use: Yes FmHx Family History: No diabetes Physical Exam Vitals Vital Signs Date Time Temp Pulse Resp B/P Pulse Ox O2 Delivery O2 Flow Rate FiO2 12/21/16 04:41 98.1 16 96/70 99 Room Air 12/21/16 02:15 112 18 138/94 99 Room Air 12/21/16 00:11 97.1 111 18 157/90 97 Physical Exam General: Well developed, well nourished, no acute distress Head: Normocephalic, atraumatic. Eyes: Pupils equally reactive, EOM intact ENT: Moist mucous membranes Neck: Supple, no lymphadenopathy Respiratory: Lungs clear bilaterally, no distress Cardiovascular: Irregularly irregular, no murmurs, rubs, or gallops Abdominal: Soft, non-tender, non-distended, no peritoneal signs : Deferred MSK: No edema, no unilateral swelling, 5/5 strength Neurologic: Alert and oriented, moving all extremities, normal speech, no focal weakness, no cerebellar signs Skin: No rash Psych: Normal mood Result Diagram: 12/21/1622412/21/16224 Results 24 hrs Laboratory Tests Test 12/21/16 02:25 White Blood Count 9.510^3/ul Red Blood Count 4.3410^6/ul Hemoglobin 12.9g/dl Hematocrit 38.6% Mean Corpuscular Volume 88.9fl Mean Corpuscular Hemoglobin 29.7pg Mean Corpuscular Hemoglobin Concent 33.4g/dl Red Cell Distribution Width 13.7% Platelet Count 55940^3/UL Mean Platelet Volume 9.6fl Neutrophils % 76.1% Lymphocytes % 17.1% Monocytes % 4.5% Eosinophils % 1.4% Basophils % 0.3% Nucleated Red Blood Cells % 0.0/100WBC Neutrophils # (Manual) 710^3/ul Lymphocytes # 1.610^3/ul Monocytes # 0.410^3/ul Eosinophils # 0.110^3/ul Basophils # 0.010^3/ul Nucleated Red Blood Cells # 0.010^3/ul Prothrombin Time Pending Prothrombin Time Ratio 1.7 INR International Normalized Ratio 1.87 Activated Partial Thromboplast Time 35.6Sec Sodium Level 142mmol/L Potassium Level 3.9mmol/L Chloride Level 103mmol/L Carbon Dioxide Level 28mmol/L Anion Gap 15 Blood Urea Nitrogen 11mg/dl Creatinine 0.74mg/dl Glucose Level 138mg/dl Calcium Level 9.5mg/dl Troponin I < 0.012ng/ml Digoxin Level < 0.4ng/ml Current Medications Medications (Trade) Dose Ordered Sig/Giovanni Route PRN Reason Start Time Stop Time Status Last Admin Dose Admin Aspirin (Aspirin) 325 mg ONCE ONCE PO 12/21/16 02:21 12/21/16 02:22 DC 12/21/16 02:32 Nitroglycerin (Nitroglycerin 2% Oint) 1 inch ONCE ONCE TD 12/21/16 02:21 12/21/16 02:22 DC 12/21/16 02:32 Procedures/MDM EKG, MONITORS, & DIAGNOSTIC IMAGING: EKG: I reviewed and interpreted a 12-lead EKG. Rhythm: A. fib rate around 110 Ectopy: None Intervals: No abnormalities ST segments: No elevations or depressions T waves: No contiguous inversions Repeat EKG: EKG: I reviewed and interpreted a 12-lead EKG. Rhythm: A. fib rate controlled Ectopy: None Intervals: No abnormalities ST segments: No elevations or depressions T waves: No contiguous inversions Chest x-ray: I reviewed and interpreted a 1 view of the chest Mediastinum: No enlargement Cardiac silhouette: No cardiomegaly Airspace: Clear lung cortez bilaterally without evidence of pneumothorax Bones: No evidence of fracture LAB INTERPRETATION: Negative troponin, slightly subtherapeutic INR MEDICAL DECISION MAKING: The patient's history, physical exam and clinical presentation is concerning for possible cardiogenic etiology and acute coronary syndrome. The patient does not have back pain or migratory pain to suggest dissection. The patient describes surgery that appears to be consistent with valvular replacement. However, she is not definitively sure. Surgery was at [place]. Based on the patient's clinical exam and history and risk factors, I have a much lower clinical concern for pulmonary embolism, acute aortic dissection, pneumothorax, pneumonia, cardiac tamponade HEART Score: 6 MACE Rate: 16.6% Shared Decision Making: We had a conversation regarding risk stratification, MACE rate, and the risks, benefits, alternatives of disposition planning options. Disposition planning: Strong recommendation for hospitalization patient agrees ER COURSE: Aspirin and nitro provided. The patient is pain-free currently. I believe the patient will benefit from hospitalization for further management of chest pain to rule out acute coronary syndrome. I kept the patient and/or family informed of laboratory and diagnostic imaging results throughout the emergency room course. DISPOSITION PLAN: Telemetry admission for risk stratification, rule out of acute coronary syndrome CONSULTATION: Accepting care team and consultations: I discussed the current laboratory data, diagnostic imaging and emergency care provided. Admitting team: Dr. Agee Admitting team indication: Insurance directed, healthcare partners Departure Diagnosis: Primary Impression: Chest pain Qualified Code: R07.9 - Chest pain, unspecified type Additional Impression: Atrial fibrillation Qualified Code: I48.2 - Chronic atrial fibrillation Condition: Stable PAULA COLLINS MD Dec 21, 2016 02:19
--- NOTE | 2016-12-21 02:46 | RADRPT ---
PROCEDURE: Chest. CLINICAL INDICATION: Chest pain. TECHNIQUE: Single frontal view of the chest was obtained. COMPARISON: 10/04/2016. FINDINGS: Mediasternotomy wires are present. There are mechanical valve and left atrial appendage occlusion d evice. The cardiac silhouette is magnified. The aortic arch is unremarkable. There is mild bibasil ar atelectasis. There is no focal consolidation, vascular congestion or pleural effusion. There is no pneumothorax. IMPRESSION: Mild bibasilar atelectasis. .Daniel Gunter MD, MD Date Time Electronically viewed and signed by .Daniel Gunter MD, on 12/21/2016 02:46 .T/
[2016-12-21 03:25] LABS: BASOPHILS % 0.3 % (0.0-2.0); EOSINOPHILS # 0.1 10^3/ul (0.0-0.5); EOSINOPHILS % 1.4 % (0.0-7.0); HEMATOCRIT 38.6 % (37.0-47.0); HEMOGLOBIN 12.9 g/dl (12.0-16.0); LYMPHOCYTES # 1.6 10^3/ul (0.8-2.9); LYMPHOCYTES % 17.1 % (15.0-51.0); MEAN CORPUSCULAR HEMOGLOBIN 29.7 pg (29.0-33.0); MEAN CORPUSCULAR HGB CONC 33.4 g/dl (32.0-37.0); MEAN CORPUSCULAR VOLUME 88.9 fl (82.0-101.0); MEAN PLATELET VOLUME 9.6 fl (7.4-10.4); MONOCYTE # 0.4 10^3/ul (0.3-0.9); MONOCYTES % 4.5 % (0.0-11.0); NEUTROPHILS % 76.1 % (39.0-77.0); PLATELET COUNT 156 10^3/UL (140-415); RED BLOOD COUNT 4.34 10^6/ul (4.20-5.40); RED CELL DISTRIBUTION WIDTH 13.7 % (11.5-14.5); WHITE BLOOD COUNT 9.5 10^3/ul (4.8-10.8)
[2016-12-21 03:31] LABS: ANION GAP 15 (8-16); BLOOD UREA NITROGEN 11 mg/dl (7-20); CALCIUM 9.5 mg/dl (8.4-10.2); CARBON DIOXIDE 28 mmol/L (21-31); CHLORIDE 103 mmol/L (97-110); CREATININE 0.74 mg/dl (0.44-1.00); GLUCOSE 138 mg/dl (70-220); POTASSIUM 3.9 mmol/L (3.5-5.1); SODIUM 142 mmol/L (135-144)
[2016-12-21] MEDS ORDERED: CEPH250C PO (03:31)
[2016-12-21] MEDS ORDERED: ACET-141 PO (03:31)
[2016-12-21 03:39] LABS: PARTIAL THROMBOPLASTIN TIME 35.6 Sec (25.0-35.0)
[2016-12-21 03:42] LABS: TROPONIN-I < 0.012 ng/ml (0.00-0.12)
[2016-12-21 03:49] LABS: INR 1.87; PT RATIO 1.7
[2016-12-21 05:13] LABS: PROTIME 21.6 Sec (12.2-14.2)
[2016-12-21] MEDS ORDERED: ONDANSETRON 4 MG INJ IV PRN ×2 (05:30→07:30)
[2016-12-21] MEDS ORDERED: ACETAMINOPHEN 325 MG TAB PO PRN (05:30)
[2016-12-21] MEDS ORDERED: SOD CHLORIDE 0.9% 500 ML IV STA (05:59)
[2016-12-21] MEDS ORDERED: ACETAMINOPHEN 500 MG TAB PO PRN (07:30)
--- NOTE | 2016-12-21 07:50 | HP ---
DATE OF ADMISSION: 12/21/2016 CHIEF COMPLAINT: Chest pain. HISTORY OF PRESENT ILLNESS: A 65-year-old female with a past medical history of hypertension, constipation, coronary artery bypass graft surgery, hysterectomy and a recent cardiac ablation, who presents with substernal chest pain that was said to have started yesterday. Pain is said to radiate to her back associated with shortness of breath, as well as dizziness. Pain is said to be a pressure-like sensation and has been increasing in intensity all day. She denies fever. Denies cough. Denies abdominal pain, nausea or vomiting. Denies blood in her stool. Denies passing out episodes. Denies focal neurologic deficits. PAST MEDICAL HISTORY: 1. Hypertension. 2. High cholesterol. 3. Coronary artery disease, status post CABG. 4. Paroxysmal atrial fibrillation, status post recent ablation, on Coumadin therapy. 5. Chronic neuropathy. SURGICAL HISTORY: Includes: 1. Hysterectomy 2001. 2. CABG January 2015. 3. Cardiac ablation October 2016. FAMILY HISTORY: Noncontributory. ALLERGIES: NO KNOWN DRUG ALLERGIES. MEDICATIONS: Reviewed and reconciled. SOCIAL HISTORY: Denies tobacco, alcohol or illicit drug use. PHYSICAL EXAMINATION: VITAL SIGNS: Temperature 98.1, heart rate ranges between 87 and 113, but is regular; respiratory rate 17, blood pressure is a little on the low side at 70/73, saturation 97 percent on room air. GENERAL APPEARANCE: Patient looks anxious, but she is calm. She is in no distress. HEENT: Head normocephalic. Pupils are equal and reactive. Mucous membranes moist. Posterior pharynx negative for exudate. NECK: Supple. LUNGS: Clear. CARDIAC: Irregular, irregular pulse. No murmurs. ABDOMEN: Soft, nontender, nondistended. Normoactive bowel sounds. EXTREMITIES: There is no lower extremity edema. PSYCHIATRIC: She is calm, cooperative with exam. DATA: CBC is unremarkable, as well as BNP. Coag profile: INR is subtherapeutic at 1.8. Digoxin is level is less than 0.4. Chest x-ray shows mild bibasilar atelectasis. EKG showed atrial fibrillation with rate control. IMPRESSION: A 65-year-old female who presents with midsternal chest pain of 1-day duration with shortness of breath and dizziness with the followin. Chest pain, rule out an acute coronary syndrome. 2. Rate-controlled atrial fibrillation, status post recent ablation. 3. Coronary artery disease, status post coronary artery bypass graft in the past. 4. Hypertension, with good control. 5. Chronic atrial fibrillation on Coumadin therapy with fluctuation in rate control. 6. Subtherapeutic INR. 7. Dyslipidemia, on statin. 8. Chronic neuropathy. PLAN: Patient will be admitted to a telemetry floor. We will continue with her home meds and titrate for better control. Cardiology consultation will be obtained to assist in management. Patient will have another 2D echo. She has not had one recently and we will continue to monitor INR levels and continue anticoagulation therapy while in-hours. Further interventions will depend on our findings and clinical course. Plan of care has been reviewed with staff. Questions have been answered. For prophylaxis, the patient should be on full dose anticoagulation, as well as Pepcid. Dictated By: Nirali Agee MD /william/joao /Document#: [id number] ARIELLA
[2016-12-21 08:23] LABS: CREATINE KINASE 86 IU/L (23-200)
[2016-12-21 08:25] LABS: ALBUMIN 3.5 g/dl (3.3-4.9); BILIRUBIN,INDIRECT 0.5 mg/dl (0-1.1); BILIRUBIN,TOTAL 0.5 mg/dl (0.2-1.3); CHOL/HDL RATIO 4.2 RATIO; MAGNESIUM 2.2 mg/dl (1.7-2.5); PHOSPHORUS 3.7 mg/dl (2.5-4.9); TOTAL PROTEIN 6.5 g/dl (6.1-8.1)
[2016-12-21 08:35] LABS: CK-MB 1.23 ng/ml (0.0-2.4)
[2016-12-21 08:48] LABS: TROPONIN-I < 0.012 ng/ml (0.00-0.12)
[2016-12-21] MEDS: BENAZEPRIL 5 MG TAB PO SCH (09:00)
[2016-12-21] MEDS ORDERED: FAMOTIDINE 20 MG TAB PO SCH (09:00)
[2016-12-21] MEDS: GABAPENTIN 100 MG CAP PO SCH ×2 (09:00→20:39)
[2016-12-21] MEDS: DOCUSATE SODIUM 100 MG CAP PO SCH (09:44)
[2016-12-21] MEDS: ASPIRIN (EC) 81 MG TAB PO SCH (09:44)
[2016-12-21] MEDS: AMIODARONE 200 MG TAB PO SCH ×2 (09:46→20:40)
[2016-12-21] MEDS: METOPROLOL 25 MG TAB PO SCH ×2 (09:47→20:39)
--- NOTE | 2016-12-21 12:58 | RADRPT ---
Echocardiogram Report Patient Name: YAMILA HARRINGTON Gender: Female Date: 1950 Study Date: 21-Dec-2016 Word Processor: IVETTE Chan.[facility] Location: [facility] Ref. Physician: JIMMY SCHWARZ Quality: Technically Difficult Study Procedures: Transthoracic echocardiogram with complete 2D, M-Mode, and doppler examination. Indications: Chest Pain. 2D/M Mode Doppler Measurement Value Normal Ranges Measurement Value Normal Ranges LVIDd 2D 4.5 3.5 - 5.6 cm DIONNE Vmax 4.8 cm2 LVIDs 2D 3.3 2.1 - 4.1 cm DIONNE VTI 1.8 cm2 FS 2D 26.8 % AV Mean Jin 1.2 m/sec LVPWd 2D 1.1 0.6 - 1.1 cm AV Mean PG 6.0 mmHg IVSd 2D 0.9 0.6 - 1.1 cm AV Peak Jin 0.6 m/sec IVS/LVPW 2D 0.9 AV Peak PG 1.0 mmHg AoR Diam 2D 2.2 2.0 - 3.7 cm AV VTI 36.7 cm LA/Ao 2D 2 0 - 1 AI Peak PG 32.0 mmHg EDV 2D 91.7 cm3 AI Peak Jin 2.8 m/sec ESV 2D 35.9 cm3 AI PHT 1714.0 msec LA Dimen 2D 5.0 2.3 - 4.0 cm LVOT Mean Jin 0.6 m/sec LVOT Diam 2.0 cm LVOT Mean PG 2.0 mmHg LVOT Area 3.1 cm2 LVOT Peak Jin 0.9 m/sec LVOT Peak PG 3.0 mmHg LVOT VTI 20.7 cm MV PHT 123.0 msec MV Peak Jin 1.9 m/sec MV Peak PG 15.0 mmHg MV Mean Jin 1.0 m/sec MV Mean PG 5.0 mmHg MV Decel [place] 4 MV PHT Peak Jin 1.9 m/sec MV PHT 123.0 msec MV VTI 39.1 cm MVA PHT 1.8 cm2 MVA VTI 1.7 cm TR Peak Jin 2.5 m/sec TR Peak PG 26.0 mmHg PA Pressure 31.0 mmHg Findings Left Ventricle: Normal left ventricular systolic function. Normal left ventricular cavity size. Normal left ventricular wall thickness. Ejection fraction is visually estimated at 55 %. Tissue Doppler/Mitral Doppler indices are indeterminate in this study due to the presence of mitral valve repair or replacement. Resting Segmental Wall Motion Analysis: Abnormal septal motion secondary to cardiac surgery. Right Ventricle: Normal right ventricular size. Normal right ventricular systolic function. Left Atrium: There is severe enlargement of left atrium. Right Atrium: There is severe enlargement of right atrium. Mitral Valve: Well seated bioprosthetic mitral valve replacement. Gradients were not thoroughly evaluated but peak gradient is 13 mmHg though visually leaflets open well. Mild eccentric regurgitation. Aortic Valve: Normal appearance of the aortic valve. Mild aortic valve regurgitation. Tricuspid Valve: Tricuspid valve not well visualized. Estimated peak PA systolic pressure 36 mmHg. There is mild tricuspid regurgitation. Pulmonic Valve: Pulmonic valve not well visualized. Pericardium: Normal pericardium with no significant pericardial effusion. Aorta: Normal aortic root. IVC: Normal size and no respiratory collapse consistent with elevated right atrial pressure. Conclusions Normal left ventricular systolic function. Normal left ventricular cavity size. Normal left ventricular wall thickness. Ejection fraction is visually estimated at 55 %. Abnormal septal motion secondary to cardiac surgery. Well seated bioprosthetic mitral valve replacement. Gradients were not thoroughly evaluated but peak gradient is 13 mmHg though visually leaflets open well. Mild eccentric regurgitation. Mild aortic valve regurgitation. Estimated peak PA systolic pressure 36 mmHg based on RA pressure of 8 mmHg. Electronically Signed By: Lazaro Osborn 21-Dec-2016 12:58:01 -0700 Patient Name: YAMILA HARRINGTON Study Date: 21-Dec-2016 [id number]
[2016-12-21 14:20] LABS: THYROID STIMULATING HORMONE 7.75 MIU/L (0.465-4.680)
--- NOTE | 2016-12-21 15:25 | PN ---
Date/Time of Note Date/Time of Note DATE: 12/21/16 TIME: 15:22 Assessment/Plan VTE Prophylaxis VTE Prophylaxis Intervention: SCD's Lines/Catheters IV Catheter Type (from Nrsg): Saline Lock Assessment/Plan Assessment/Plan 65 yo F with pmhx CAD sp CABG, AFib sp ablation here with chest pain. PLAN cards eval. I contacted cardiology group pt follows with, was told Dr Francois will see patient cont home meds Subjective 24 Hr Interval Summary Free Text/Dictation sitting up in bed nad no mrg lungs clear abd soft no rashes Conclusions Normal left ventricular systolic function. Normal left ventricular cavity size. Normal left ventricular wall thickness. Ejection fraction is visually estimated at 55 %. Abnormal septal motion secondary to cardiac surgery. Well seated bioprosthetic mitral valve replacement. Gradients were not thoroughly evaluated but peak gradient is 13 mmHg though visually leaflets open well. Mild eccentric regurgitation. Mild aortic valve regurgitation. Estimated peak PA systolic pressure 36 mmHg based on RA pressure of 8 mmHg. Exam/Review of Systems Vital Signs Vitals Vital Signs Date Time Temp Pulse Resp B/P Pulse Ox O2 Delivery O2 Flow Rate FiO2 12/21/16 12:00 75 12/21/16 09:47 18 116/85 96 Room Air 12/21/16 04:41 98.1 Results Result Diagram: 12/21/1622412/21/16 022 Results 24 hrs Laboratory Tests Test 12/21/16 02:25 12/21/16 07:50 White Blood Count 9.5 # Red Blood Count 4.34 Hemoglobin 12.9 Hematocrit 38.6 Mean Corpuscular Volume 88.9 Mean Corpuscular Hemoglobin 29.7 Mean Corpuscular Hemoglobin Concent 33.4 Red Cell Distribution Width 13.7 Platelet Count 156 # Mean Platelet Volume 9.6 Neutrophils % 76.1 Lymphocytes % 17.1 Monocytes % 4.5 Eosinophils % 1.4 Basophils % 0.3 Nucleated Red Blood Cells % 0.0 Neutrophils # (Manual) 7 Lymphocytes # 1.6 Monocytes # 0.4 Eosinophils # 0.1 Basophils # 0.0 Nucleated Red Blood Cells # 0.0 Prothrombin Time 21.6 #H Prothrombin Time Ratio 1.7 INR International Normalized Ratio 1.87 Activated Partial Thromboplast Time 35.6 H Sodium Level 142 Potassium Level 3.9 Chloride Level 103 Carbon Dioxide Level 28 Anion Gap 15 Blood Urea Nitrogen 11 Creatinine 0.74 Glucose Level 138 Calcium Level 9.5 Troponin I < 0.012 < 0.012 Digoxin Level < 0.4 L Hemoglobin A1c 6.0 H Phosphorus Level 3.7 Magnesium Level 2.2 Total Bilirubin 0.5 Direct Bilirubin 0.00 Indirect Bilirubin 0.5 Aspartate Amino Transf (AST/SGOT) 23 Alanine Aminotransferase (ALT/SGPT) 37 Alkaline Phosphatase 52 Creatine Kinase 86 Creatine Kinase Index 1.4 Creatinine Kinase MB (Mass) 1.23 Total Protein 6.5 Albumin 3.5 Triglycerides Level 95 Cholesterol Level 180 LDL Cholesterol, Calculated 119 HDL Cholesterol 42 Cholesterol/HDL Ratio 4.2 Thyroid Stimulating Hormone (TSH) 7.750 H Medications Medications Current Medications Acetaminophen (Tylenol Tab) 500 mg Q4H PRN PO PAIN AND OR ELEVATED TEMP; Start 12/21/16 at 07:30 Amiodarone HCl (Cordarone) 200 mg BID PO Last administered on 12/21/16 09:46; Admin Dose 200 MG; Start 12/21/16 at 09:00 Atorvastatin Calcium (Lipitor) 40 mg HS PO ; Start 12/21/16 at 21:00 Benazepril HCl (Lotensin) 5 mg DAILY PO ; Start 12/21/16 at 09:00 Docusate Sodium (Colace) 100 mg DAILY PO Last administered on 12/21/16 09:44; Admin Dose 100 MG; Start 12/21/16 at 09:00 Gabapentin (Neurontin) 100 mg BID PO ; Start 12/21/16 at 09:00 Metoprolol Tartrate (Lopressor) 25 mg BID PO Last administered on 12/21/16 09: 47; Admin Dose 25 MG; Start 12/21/16 at 09:00 Warfarin Sodium (Coumadin) 7.5 mg DAILY@17 PO ; Start 12/21/16 at 17:00 Famotidine (Pepcid) 20 mg BID PO Last administered on 12/21/16 09:44; Admin Dose 20 MG; Start 12/21/16 at 09:00 Ondansetron HCl (Zofran Inj) 4 mg Q6H PRN IV NAUSEA AND/OR VOMITING; Start at 07:30 Aspirin (Halfprin) 81 mg DAILY PO Last administered on 12/21/16 09:44; Admin Dose 81 MG; Start 12/21/16 at 09:00 DANIELITO BROWN MD Dec 21, 2016 15:25
[2016-12-21 15:26] LABS: CREATINE KINASE 82 IU/L (23-200)
[2016-12-21 15:38] LABS: CK-MB 1.17 ng/ml (0.0-2.4)
[2016-12-21 15:40] LABS: TROPONIN-I < 0.012 ng/ml (0.00-0.12)
[2016-12-21] MEDS: WARFARIN 7.5 MG TAB PO SCH (17:35)
[2016-12-21] MEDS ORDERED: ATORVASTATIN 40 MG TAB PO SCH (21:00)
[2016-12-22] VITALS (10 sets, daily range): BP systolic 91–122; BP diastolic 51–77; PULSE 50–96; RESP 16–18
[2016-12-22] MEDS: DOCUSATE SODIUM 100 MG CAP PO SCH (08:26)
[2016-12-22] MEDS: AMIODARONE 200 MG TAB PO SCH (08:28)
[2016-12-22] MEDS: ASPIRIN (EC) 81 MG TAB PO SCH (08:28)
[2016-12-22] MEDS: METOPROLOL 25 MG TAB PO SCH (08:28)
[2016-12-22] MEDS: GABAPENTIN 100 MG CAP PO SCH (08:29)
[2016-12-22] MEDS: BENAZEPRIL 5 MG TAB PO SCH (08:29)
[2016-12-22 09:41] LABS: BASOPHILS % 0.7 % (0.0-2.0); EOSINOPHILS # 0.1 10^3/ul (0.0-0.5); EOSINOPHILS % 2.2 % (0.0-7.0); HEMATOCRIT 39.5 % (37.0-47.0); LYMPHOCYTES # 1.4 10^3/ul (0.8-2.9); LYMPHOCYTES % 31.3 % (15.0-51.0); MEAN CORPUSCULAR HEMOGLOBIN 29.7 pg (29.0-33.0); MEAN CORPUSCULAR HGB CONC 32.9 g/dl (32.0-37.0); MEAN CORPUSCULAR VOLUME 90.4 fl (82.0-101.0); MEAN PLATELET VOLUME 9.7 fl (7.4-10.4); MONOCYTE # 0.3 10^3/ul (0.3-0.9); MONOCYTES % 7.6 % (0.0-11.0); NEUTROPHILS % 57.8 % (39.0-77.0); PLATELET COUNT 142 10^3/UL (140-415); RED BLOOD COUNT 4.37 10^6/ul (4.20-5.40); RED CELL DISTRIBUTION WIDTH 13.9 % (11.5-14.5); WHITE BLOOD COUNT 4.5 10^3/ul (4.8-10.8)
[2016-12-22 09:49] LABS: INR 2.25; PROTIME 25.1 Sec (12.2-14.2)
[2016-12-22 09:50] LABS: PARTIAL THROMBOPLASTIN TIME 35.2 Sec (25.0-35.0)
[2016-12-22 09:51] LABS: CALCIUM 9.5 mg/dl (8.4-10.2); CREATININE 0.77 mg/dl (0.44-1.00); POTASSIUM 4.6 mmol/L (3.5-5.1)
--- NOTE | 2016-12-22 13:22 | CONS ---
Date/Time of Note Date/Time of Note DATE: 12/22/16 TIME: 13:20 Assessment/Plan Assessment/Plan Additional Assessment/Plan ATypical chest pain CABG Palpitations PAF HTN very atypical hx of ACS, nromal trops and nospecific twi by ekg no arrythmias Possible event recorder as an outpatient nomral EF No stt necessary Consultation Date/Type/Reason Admit Date/Time Dec 21, 2016 at 05:11 Hx of Present Illness A 65-year-old female with a past medical history of hypertension, constipation, coronary artery bypass graft surgery, hysterectomy and a recent cardiac ablation, who presents with substernal chest pain that was said to have started yesterday. Pain is said to radiate to her back associated with shortness of breath, as well as dizziness. Pain is said to be a pressure-like sensation and has been increasing in intensity all day. She denies fever. Denies cough. Denies abdominal pain, nausea or vomiting. Denies blood in her stool. Denies passing out episodes. Denies focal neurologic deficits. Her primary reason for presentation was palpitiaotns for an hour 2 days back wtih no sycnope. Her chest pain is localized, prlureitic and constant wiht no exertional symptoms Social History Smoking Status: Never smoker Exam/Review of Systems Vital Signs Vitals Vital Signs Date Time Temp Pulse Resp B/P Pulse Ox O2 Delivery O2 Flow Rate FiO2 12/22/16 12:13 52 12/22/16 11:47 98.3 16 100/64 96 12/21/16 17:00 Room Air Results Result Diagram: 12/22/16 0857 12/22/16 0857 Results 24 hrs Laboratory Tests Test 12/21/16 13:54 12/22/16 08:57 Creatine Kinase 82 Creatine Kinase Index 1.4 Creatinine Kinase MB (Mass) 1.17 Troponin I < 0.012 White Blood Count 4.5 #L Red Blood Count 4.37 Hemoglobin 13.0 Hematocrit 39.5 Mean Corpuscular Volume 90.4 Mean Corpuscular Hemoglobin 29.7 Mean Corpuscular Hemoglobin Concent 32.9 Red Cell Distribution Width 13.9 Platelet Count 142 Mean Platelet Volume 9.7 Neutrophils % 57.8 Lymphocytes % 31.3 Monocytes % 7.6 Eosinophils % 2.2 Basophils % 0.7 Nucleated Red Blood Cells % 0.0 Neutrophils # (Manual) 2.6 Lymphocytes # 1.4 Monocytes # 0.3 Eosinophils # 0.1 Basophils # 0.0 Nucleated Red Blood Cells # 0.0 Prothrombin Time 25.1 H Prothrombin Time Ratio 2.0 INR International Normalized Ratio 2.25 Activated Partial Thromboplast Time 35.2 H Sodium Level 144 Potassium Level 4.6 Chloride Level 102 Carbon Dioxide Level 29 Anion Gap 18 H Blood Urea Nitrogen 11 Creatinine 0.77 Glucose Level 116 Calcium Level 9.5 Medications Medications Current Medications Acetaminophen (Tylenol Tab) 500 mg Q4H PRN PO PAIN AND OR ELEVATED TEMP Last administered on 12/22/16 08:29; Admin Dose 500 MG; Start 12/21/16 at 07:30 Amiodarone HCl (Cordarone) 200 mg BID PO Last administered on 12/22/16 08:28; Admin Dose 200 MG; Start 12/21/16 at 09:00 Atorvastatin Calcium (Lipitor) 40 mg HS PO Last administered on 12/21/16 20:39 ; Admin Dose 40 MG; Start 12/21/16 at 21:00 Benazepril HCl (Lotensin) 5 mg DAILY PO Last administered on 12/22/16 08:29; Admin Dose 5 MG; Start 12/21/16 at 09:00 Docusate Sodium (Colace) 100 mg DAILY PO Last administered on 12/22/16 08:26; Admin Dose 100 MG; Start 12/21/16 at 09:00 Gabapentin (Neurontin) 100 mg BID PO Last administered on 12/22/16 08:29; Admin Dose 100 MG; Start 12/21/16 at 09:00 Metoprolol Tartrate (Lopressor) 25 mg BID PO Last administered on 12/22/16 08: 28; Admin Dose 25 MG; Start 12/21/16 at 09:00 Warfarin Sodium (Coumadin) 7.5 mg DAILY@17 PO Last administered on 12/21/16 17 :35; Admin Dose 7.5 MG; Start 12/21/16 at 17:00 Ondansetron HCl (Zofran Inj) 4 mg Q6H PRN IV NAUSEA AND/OR VOMITING; Start at 07:30 Aspirin (Halfprin) 81 mg DAILY PO Last administered on 12/22/16 08:28; Admin Dose 81 MG; Start 8/24/17 at 09:00 LIUDMILA ESPOSITO MD Dec 22, 2016 13:22
--- NOTE | 2016-12-22 13:54 | PDOCDIS ---
Discharge Instructions DIAGNOSIS Discharge Diagnosis chest pain CONDITION Patient Condition: Good FOLLOW UP/APPOINTMENTS Follow-up Plan Follow the instructions the heart doctor gave you regarding a potential heart monitor and office follow up no changes were made from your admission medications DANIELITO BROWN MD Dec 22, 2016 13:54
--- NOTE | 2016-12-22 13:55 | DS ---
Date/Time of Note Date/Time of Note DATE: 12/22/16 TIME: 13:54 Discharge Summary Admission/Discharge Info Admit Date/Time Dec 21, 2016 at 05:11 Discharge Date/Time Discharge Diagnosis chest pain Patient Condition: Good Consults cardiology Procedures 8.24 TTE Conclusions Normal left ventricular systolic function. Normal left ventricular cavity size. Normal left ventricular wall thickness. Ejection fraction is visually estimated at 55 %. Abnormal septal motion secondary to cardiac surgery. Well seated bioprosthetic mitral valve replacement. Gradients were not thoroughly evaluated but peak gradient is 13 mmHg though visually leaflets open well. Mild eccentric regurgitation. Mild aortic valve regurgitation. Estimated peak PA systolic pressure 36 mmHg based on RA pressure of 8 mmHg. Hx of Present Illness HISTORY OF PRESENT ILLNESS: A 65-year-old female with a past medical history of hypertension, constipation, coronary artery bypass graft surgery, hysterectomy and a recent cardiac ablation, who presents with substernal chest pain that was said to have started yesterday. Pain is said to radiate to her back associated with shortness of breath, as well as dizziness. Pain is said to be a pressure-like sensation and has been increasing in intensity all day. She denies fever. Denies cough. Denies abdominal pain, nausea or vomiting. Denies blood in her stool. Denies passing out episodes. Denies focal neurologic deficits. Hospital Course Pt admitted for chest pain, ruled out for ACS. Despite previous ablation, noted to be in AFib on tele but rate controlled. Pt seen by cardiology service, no further inpatient work up advised. Pt to be seen in the office for follow up and a possible event monitor. No changes made from admission meds. Home Meds Active Scripts Acetaminophen* (Tylophen*) 500 Mg Capsule, 1 CAP PO Q6H Y for PAIN AND OR ELEVATED TEMP, #30 CAP Prov:BRIANNA THOMAS PA-C 12/18/16 Cephalexin* (Keflex*) 500 Mg Capsule, 500 MG PO QID for 7 Days, CAP Prov:BRIANNA THOMAS PA-C 12/18/16 Ibuprofen* (Ibuprofen*) 600 Mg Tablet, 600 MG PO Q8 for PAIN AND/OR INFLAMMATION , #30 TAB Prov:GUTIERREZ BOOTH MD 10/04/16 Docusate Sodium* (Colace*) 100 Mg Capsule, 100 MG PO BID for CONSTIPATION, #30 CAP Prov:ZOHRABIAN,GUTIERREZ MD 10/04/16 Levofloxacin* (Levaquin*) 500 Mg Tablet, 500 MG PO DAILY for 4 Days, TAB Prov:GUTIERREZ BOOTH MD 10/04/16 Metronidazole* (Flagyl*) 500 Mg Tablet, 500 MG PO TID for 5 Days, TAB Prov:GUTIERREZ BOOTH MD 10/04/16 Amiodarone Hcl* (Amiodarone Hcl*) 200 Mg Tablet, 200 MG PO BID, #60 TAB Prov:ALETHEA LOW DO 08/25/16 Reported Medications Acetaminophen* (Acetaminophen*) 500 MG Extra Strength Tablet, 500 MG PO Q4H Y for PAIN AND OR ELEVATED TEMP, TAB 12/21/16 Cephalexin* (Cephalexin*) 250 Mg Capsule, 250 MG PO Q8, #21 CAP 12/21/16 Metoprolol Tartrate* (Lopressor*) 25 Mg Tab, 25 MG PO BID, #60 TAB 08/30/16 Gabapentin* (Gabapentin*) 100 Mg Capsule, 100 MG PO BID, #90 CAP 08/30/16 Warfarin Sodium* (Coumadin*) 5 Mg Tablet, 7.5 MG PO DAILY, TAB TAKE 1 TO 1 and 1/2 TABLETS DAILY OR DIRECTED BY CLINICAL CLINIC. 08/30/16 Benazepril Hcl* (Benazepril Hcl*) 5 Mg Tablet, 5 MG PO DAILY, #30 TAB 08/25/16 Atorvastatin* (Atorvastatin*) 40 Mg Tablet, 40 MG PO HS, TAB 03/18/15 Docusate Sodium* (Docusate Sodium*) 100 Mg Capsule, 100 MG PO DAILY, CAP 03/18/15 Primary Care Provider Eliezer Hansen Pending Labs Laboratory Tests Test 12/22/16 08:57 White Blood Count 4.510^3/ul (4.8-10.8) Red Blood Count 4.3710^6/ul (4.20-5.40) Hemoglobin 13.0g/dl (12.0-16.0) Hematocrit 39.5% (37.0-47.0) Mean Corpuscular Volume 90.4fl (82.0-101.0) Mean Corpuscular Hemoglobin 29.7pg (29.0-33.0) Mean Corpuscular Hemoglobin Concent 32.9g/dl (32.0-37.0) Red Cell Distribution Width 13.9% (11.5-14.5) Platelet Count 67156^3/UL (140-415) Mean Platelet Volume 9.7fl (7.4-10.4) Neutrophils % 57.8% (39.0-77.0) Lymphocytes % 31.3% (15.0-51.0) Monocytes % 7.6% (0.0-11.0) Eosinophils % 2.2% (0.0-7.0) Basophils % 0.7% (0.0-2.0) Nucleated Red Blood Cells % 0.0/100WBC (0.0-0.0) Neutrophils # (Manual) 2.610^3/ul (1.7-7.5) Lymphocytes # 1.410^3/ul (0.8-2.9) Monocytes # 0.310^3/ul (0.3-0.9) Eosinophils # 0.110^3/ul (0.0-0.5) Basophils # 0.010^3/ul (0.0-0.1) Nucleated Red Blood Cells # 0.010^3/ul (0.0-0.0) Prothrombin Time 25.1Sec (12.2-14.2) Prothrombin Time Ratio 2.0 INR International Normalized Ratio 2.25 Activated Partial Thromboplast Time 35.2Sec (25.0-35.0) Sodium Level 144mmol/L (135-144) Potassium Level 4.6mmol/L (3.5-5.1) Chloride Level 102mmol/L (97-110) Carbon Dioxide Level 29mmol/L (21-31) Anion Gap 18 (8-16) Blood Urea Nitrogen 11mg/dl (7-20) Creatinine 0.77mg/dl (0.44-1.00) Glucose Level 116mg/dl (70-220) Calcium Level 9.5mg/dl (8.4-10.2) DANIELITO BROWN MD Dec 22, 2016 13:54
[2016-12-22] MEDS: WARFARIN 7.5 MG TAB PO SCH (17:00)
== END 2016-12-22 15:35 | disposition home or self-care (01) | DRG 313 ==
LOC: E/R 00:04 → MS3 05:11 → MS4 16:23
PROVIDERS: ADMIT Family Medicine; ATTEND Family Medicine
DX: R07.9 Chest pain, unspecified (principal); I25.10 Atherosclerotic heart disease of native coronary artery without angina pectoris; G62.9 Polyneuropathy, unspecified; I48.91 Unspecified atrial fibrillation; I10 Essential (primary) hypertension; E78.5 Hyperlipidemia, unspecified; R07.89 Other chest pain; Z95.1 Presence of aortocoronary bypass graft; Z79.01 Long term (current) use of anticoagulants; Z90.710 Acquired absence of both cervix and uterus
CPT/HCPCS: 36415; 71010; 80048; 80061; 80076; 80162; 82550; 82553; 83036; 83735; 84100; 84439; 84443; 84484; 85025; 85610; 85730; 93005; 93306; J7040

== ENCOUNTER 2017-07-10 11:11 | Observation (INO) | END 2017-07-11 15:45 | disposition home or self-care (01) ==

== ENCOUNTER 2018-12-16 21:57 | Emergency (ER) | payer OTHER ==
[~2018-12-16] VITALS: Ht 154.9 cm; Wt 74.3 kg
[~2018-12-16 21:57] MED LIST changes: +ACET-141 PO; -ACET500C5 PO; -AMIO200T2 PO; +AMIO200T4 PO; -BENA5TAB2 PO; +BENA5TAB33 PO; -CEPH-443 PO; +CIPR500T4 PO; -DOCU-144 PO; -IBUP-1542 PO; -LEVO500T72 PO; +TRAM50TA2 PO; +WARF5TAB PO; -WARF5TAB72 PO
[2018-12-16 22:00] VITALS: Ht 154.9 cm; Wt 74.3 kg
[2018-12-17] MEDS ORDERED: SOD CHLORIDE 0.9% 500 ML IV STA (03:50)
[2018-12-17] MEDS ORDERED: morphine 2 MG INJ IV STA (03:50)
[2018-12-17] MEDS ORDERED: ONDANSETRON 4 MG INJ IV STA (03:50)
[2018-12-17 06:07] VITALS: BP 141/81; PULSE 81; RESP 18
== END 2018-12-17 06:08 | disposition home or self-care (01) ==
LOC: E/R 21:57
DX: K57.32 Diverticulitis of large intestine without perforation or abscess without bleeding (principal); E03.9 Hypothyroidism, unspecified; I10 Essential (primary) hypertension; Z87.891 Personal history of nicotine dependence
CPT/HCPCS: 36415; 74176; 80053; 81001; 83690; 85025; 96374; 96375; 99285; J2270; J2405; J7040